=== PATIENT | female | born 1975 | race Caucasian/White ===

== ENCOUNTER → 2017-01-29 | Outpatient (CLI) | payer BC ==
--- NOTE | 2017-01-30 08:59 | MM ---
Reason for exam: screening (asymptomatic). Last mammogram was performed 1 year ago. History: Family history of breast cancer in maternal aunt and breast cancer in maternal cousin at age 37. Took hormonal contraceptives for 12 years beginning at age 15. Physical Findings: A clinical breast exam by your physician is recommended on an annual basis and results should be correlated with mammographic findings. MG Screening Mammo w CAD Bilateral CC and MLO view(s) were taken. Prior study comparison: January 23, 2016, bilateral MG 3d diag mammo w/cad BRITTANI. The breast tissue is heterogeneously dense. This may lower the sensitivity of mammography. No significant changes when compared with prior studies. ASSESSMENT: Benign, BI-RAD 2 RECOMMENDATION: Routine screening mammogram of both breasts in 1 year.
== END | disposition home or self-care (01) ==
LOC: RADMAMWWP 16:07
PROVIDERS: ATTEND Obstetrics & Gynecology
DX: Z12.31 Encounter for screening mammogram for malignant neoplasm of breast (principal)

== ENCOUNTER → 2017-02-18 | Outpatient (CLI) | payer BC ==
[2017-02-18 07:06] LABS: Basophils % (A) 1 %; CH 28.3; CHCM 32.4; Eosinophils # (A) 0.1 k/uL (0-0.7); Eosinophils % (A) 2 %; HCT 39.8 % (34.0-46.0); HDW 2.38; Luc # (Auto) 0.12; Luc % (Auto) 3; Lymphocytes # (A) 2.2 k/uL (1.0-4.8); Lymphocytes % (A) 46 %; MCH 28.6 pg (25.0-35.0); MCHC 32.5 g/dL (31.0-37.0); MCV 87.8 fL (80.0-100.0); Mean Platelet Volume 7.7; Monocytes # (A) 0.3 k/uL (0-1.0); Monocytes % (A) 7 %; Neutrophils % (A) 42 %; RBC 4.54 m/uL (3.80-5.40); RDW 12.6 % (11.5-15.5); WBC 4.7 k/uL (3.8-10.6); WBC (Perox) 4.98
[2017-02-18 07:15] LABS: Appearance,Urine Clear (Clear); Bacteria,Urine Rare /hpf; Bilirubin,Urine Negative (Negative); Glucose,Urine (UA) Negative (Negative); Ketones,Urine Negative (Negative); Leukocyte Esterase,Urine Trace (Negative); Mucus,Urine Rare /hpf; Nitrite,Urine Negative (Negative); Particle Count 2501; Protein,Urine Negative (Negative); Specific Gravity,Urine 1.018 (1.001-1.035); Squamous Epithelial Cell,Urine 1 /hpf (0-4); UA Billing (MACRO vs. MICRO) MICRO; Urobilinogen,Urine <2.0 mg/dL (<2.0); WBC,Urine 2 /hpf (0-5)
[2017-02-18 11:45] LABS: ALT 31 U/L (9-52); AST 16 U/L (14-36); Alkaline Phosphatase 49 U/L (38-126); Anion Gap 10 mmol/L; Blood Urea Nitrogen 15 mg/dL (7-17); Calcium 9.2 mg/dL (8.4-10.2); Carbon Dioxide 26 mmol/L (22-30); Chloride 106 mmol/L (98-107); Cholesterol 202 mg/dL (<200); Glucose 92 mg/dL (74-99); HDL Cholesterol 70 mg/dL (40-60); Non-African American GFR(MDRD) >60 (>60 ml/min/1.73 sqM); Potassium 4.4 mmol/L (3.5-5.1); Sodium 142 mmol/L (137-145); Total Bilirubin 0.6 mg/dL (0.2-1.3); Total Protein 6.7 g/dL (6.3-8.2)
== END | disposition home or self-care (01) ==
LOC: LABWHC1 06:38
PROVIDERS: ATTEND Internal Medicine
DX: L65.9 Nonscarring hair loss, unspecified (principal); N31.8 Other neuromuscular dysfunction of bladder; R53.83 Other fatigue
CPT/HCPCS: 36415; 80053; 80061; 81001; 82306; 84439; 84443; 84481; 85025

== ENCOUNTER → 2018-03-25 | Outpatient (CLI) | payer BC ==
--- NOTE | 2018-03-29 11:39 | MM ---
Reason for exam: screening (asymptomatic). Last mammogram was performed 1 year and 2 months ago. History: Family history of breast cancer in maternal aunt and breast cancer in maternal cousin at age 37. Took hormonal contraceptives for 12 years beginning at age 15. Physical Findings: A clinical breast exam by your physician is recommended on an annual basis and results should be correlated with mammographic findings. MG 3D Screening Mammo W/Cad Bilateral CC and MLO view(s) were taken. Prior study comparison: January 29, 2017, bilateral MG screening mammo w CAD. January 23, 2016, bilateral MG 3d diag mammo w/cad BRITTANI. The breast tissue is heterogeneously dense. This may lower the sensitivity of mammography. No significant changes when compared with prior studies. ASSESSMENT: Benign, BI-RAD 2 RECOMMENDATION: Routine screening mammogram of both breasts in 1 year.
== END | disposition home or self-care (01) ==
LOC: RADMAMWWP 15:21
PROVIDERS: ATTEND Obstetrics & Gynecology
DX: Z12.31 Encounter for screening mammogram for malignant neoplasm of breast (principal)
CPT/HCPCS: 77063; 77067

== ENCOUNTER → 2018-04-14 | Outpatient (CLI) | payer BC ==
[2018-04-14 08:33] LABS: Basophils % (A) 0 %; Eosinophils # (A) 0.1 k/uL (0-0.7); Eosinophils % (A) 3 %; HCT 41.4 % (34.0-46.0); HGB 13.2 gm/dL (11.4-16.0); Lymphocytes # (A) 2.1 k/uL (1.0-4.8); Lymphocytes % (A) 48 %; MCH 27.8 pg (25.0-35.0); MCV 87.1 fL (80.0-100.0); Mean Platelet Volume 8.4; Monocytes # (A) 0.2 k/uL (0-1.0); Monocytes % (A) 6 %; Neutrophils # (A) 1.8 k/uL (1.3-7.7); Neutrophils % (A) 41 %; Platelet Count 174 k/uL (150-450); RBC 4.76 m/uL (3.80-5.40); RDW 12.6 % (11.5-15.5); WBC 4.4 k/uL (3.8-10.6)
[2018-04-14 09:08] LABS: ALT 18 U/L (9-52); AST 19 U/L (14-36); Albumin 4.1 g/dL (3.5-5.0); Alkaline Phosphatase 52 U/L (38-126); Anion Gap 7 mmol/L; Blood Urea Nitrogen 17 mg/dL (7-17); Calcium 9.2 mg/dL (8.4-10.2); Carbon Dioxide 30 mmol/L (22-30); Chloride 104 mmol/L (98-107); Cholesterol 212 mg/dL (<200); Glucose 97 mg/dL (74-99); HDL Cholesterol 72 mg/dL (40-60); LDL Cholesterol,Calculated 130 mg/dL (0-99); Potassium 4.3 mmol/L (3.5-5.1); Sodium 141 mmol/L (137-145); Total Bilirubin 0.5 mg/dL (0.2-1.3); Total Protein 7.1 g/dL (6.3-8.2); Triglycerides 50 mg/dL (<150)
== END | disposition home or self-care (01) ==
LOC: LABWHC1 07:13
PROVIDERS: ATTEND Internal Medicine
DX: Z00.00 Encounter for general adult medical examination without abnormal findings (principal); F90.9 Attention-deficit hyperactivity disorder, unspecified type; E55.9 Vitamin D deficiency, unspecified
CPT/HCPCS: 36415; 80053; 80061; 82306; 85025

== ENCOUNTER → 2018-07-23 | Outpatient (CLI) | payer BC ==
--- NOTE | 2018-07-23 14:10 | CT ---
EXAMINATION TYPE: CT soft tissue neck w con DATE OF EXAM: 07/23/2018 1:49 PM COMPARISON: HISTORY: enlarged lymph nodes on right side CT DLP: 383 mGycm Automated exposure control for dose reduction was used. CONTRAST: CT scan of the neck is performed following with IV Contrast, patient injected with 100 mL of Isovue 3 00. Axial images are obtained, coronal and sagittal reformatted images are reviewed. FINDINGS: Thyroid enhances normally. Osseous structures. Does appear to be a small nodule extending o ff the inferior margin of the right lobe thyroid The carotid arteries appear to be patent bilaterally. Oral pharynx and nasopharynx symmetric. Intraorbital and intracranial cranial structures have a tika l appearance Submandibular and parotid glands have a normal appearance. Hypertrophic and degenerative change of th e spine particularly noted at C5-6 and C6-C7 of the slight kyphosis. Correlate clinically. No pathologic adenopathy identified. Vocal cords have a normal appearance IMPRESSION: 1. No pathologic adenopathy. 2. Severe degenerative disc disease lower cervical spine. 3. There is a enhancing 1 cm density along the right paratracheal space which may represent a nodule extending off the inferior margin of the thyroid tissue or ectopic thyroid tissue. Recommend correlat ion with ultrasound.
== END ==
LOC: RADCTMAIN 13:18
PROVIDERS: ATTEND Internal Medicine
DX: M50.322 Other cervical disc degeneration at C5-C6 level (principal)
CPT/HCPCS: 70491; Q9967

== ENCOUNTER → 2018-07-30 | Outpatient (CLI) | payer BC ==
--- NOTE | 2018-07-30 15:53 | US ---
EXAMINATION TYPE: US thyroid st tissue head/neck DATE OF EXAM: 07/30/2018 COMPARISON: CT 2019 CLINICAL HISTORY: E04.1 Thyroid nodule. Thyroid nodule seen on recent CT GLAND SIZE: Right Lobe: 4.2 x 1.2 x 1.4 cm Overall Parenchyma: homogenous Left Lobe: 4.0 x 1.2 x 1.5 cm Overall Parenchyma: homogeneous Isthmus Thickness: 0.2 cm NODULES RIGHT: # of nodules measured on right: 0 LEFT: # of nodules measured on left: 1 1. 1.0 X 0.6 x 0.8 cm hypoechoic solid nodule at the mid/lower pole with well-defined margins. This nodule is wider than tall and shows peripheral vascularity. Prior size: no previous ISTHMUS: # of nodules measured in the isthmus: 0 Bilateral neck scanned, 1.6 x 0.9 x 1.1cm hypoechoic vascular structure seen right neck inferior to r ight thyroid lobe. This may be a parathyroid. This appears to correspond to the CT findings could be an accessory lobe o f thyroid tissue. IMPRESSION: 1. A 1 cm hypoechoic nodule inferior pole left lobe thyroid. 2. There is a 1.9 x 0.9 x 1.1 cm hypoechoic structure within the right neck inferior to the right lob e thyroid.
== END | disposition home or self-care (01) ==
LOC: RADUSWWP 14:51
PROVIDERS: ATTEND Internal Medicine
DX: E04.1 Nontoxic single thyroid nodule (principal)
CPT/HCPCS: 76536

== ENCOUNTER 2018-09-03 09:17 | Day surgery (SDC) | payer BC ==
[2018-09-03] MEDS ORDERED: ALPRAZolam 0.5 MG TAB PO ONE (09:44)
[2018-09-03 10:20] VITALS: RESP 16; TEMP 98.1
--- NOTE | 2018-09-03 10:58 | US ---
ULTRASOUND GUIDED FNA THYROID BIOPSY: CLINICAL HISTORY: Request for FNA of right-sided extra thyroid nodule and 1 cm left thyroid nodule FINDINGS: The procedure was explained to the patient. The risks, complications, benefits and alternatives were discussed and any questions were answered. Informed consent was obtained. Patient was placed supin e on the ultrasound table and prepped and draped in the usual sterile fashion. Utilizing a 25 gauge needle, five passes were made into the each of the requested nodules. Patient was stable throughout the procedure. Pathology is pending. All elements of maximal barrier technique were utilized. IMPRESSION: 1. Successful ultrasound guided FNA right extrathyroid nodule and left thyroid nodule biopsy.
[2018-09-03 11:36] VITALS: BP 116/70; PULSE 80
== END 2018-09-03 11:10 | disposition home or self-care (01) ==
LOC: RADPROMAIN 09:17
PROVIDERS: ATTEND Otolaryngology
DX: E04.1 Nontoxic single thyroid nodule (principal)
CPT/HCPCS: 10005; 10006; 88173; 88305

== ENCOUNTER → 2019-05-12 | Outpatient (CLI) | payer BC ==
--- NOTE | 2019-05-13 07:15 | US ---
EXAMINATION TYPE: US thyroid st tissue head/neck DATE OF EXAM: 05/12/2019 COMPARISON: US 07/30/2018 and 09/03/2018 CLINICAL HISTORY: E04.1 THYROID NODULE BILATERAL. Prior bilateral thyroid FNA. GLAND SIZE: Right Lobe: 3.7 x 1.3 x 1.8 cm Overall Parenchyma: homogenous Left Lobe: 3.5 x 1.5 x 1.1 cm Overall Parenchyma: homogeneous Isthmus Thickness: 0.1 cm NODULES RIGHT: # of nodules measured on right: 1 extra thyroid nodule note inferiorly 1. 1.5 X1.4 x 1.1 cm isoechoic solid nodule inferior to main thyroid tissue with well-defined margin s. This nodule is wider than tall and shows intranodular vascularity (prior FNA ). Prior size: 1.6 x 1.1 x 0.9 cm LEFT: # of nodules measured on left: 2 1. 0.2 X 0.2 x 0.1 cm hypoechoic cystic nodule at the upper pole with well-defined margins. This n odule is wider than tall and shows no intranodular vascularity. Prior size: none seen 2. 1.0 X 1.0 x 0.5 cm hypoechoic solid nodule at the mid medial pole with well-defined margins. Thi s nodule is wider than tall and shows intranodular vascularity. Prior size: 1.0 x 0.8 x 0.6 cm ISTHMUS: # of nodules measured in the isthmus: 0 Bilateral neck scanned: lymph node is noted superior to left thyroid = 1.8 x 1.5 x 0.5cm. IMPRESSION: Overall similar size of the solitary left thyroid nodule and right thyroid nodule that estrada s been previously biopsied.
--- NOTE | 2019-05-13 13:48 | MM ---
Reason for exam: screening (asymptomatic). Last mammogram was performed 1 year and 2 months ago. History: Family history of breast cancer in maternal aunt and breast cancer in maternal cousin at age 37. Took hormonal contraceptives for 12 years beginning at age 15. Physical Findings: A clinical breast exam by your physician is recommended on an annual basis and results should be correlated with mammographic findings. MG 3D Screening Mammo W/Cad Bilateral CC and MLO view(s) were taken. Prior study comparison: March 25, 2018, bilateral MG 3d screening mammo w/cad. January 29, 2017, bilateral MG screening mammo w CAD. The breast tissue is heterogeneously dense. This may lower the sensitivity of mammography. No significant changes when compared with prior studies. ASSESSMENT: Benign, BI-RAD 2 RECOMMENDATION: Routine screening mammogram of both breasts in 1 year.
== END | disposition home or self-care (01) ==
LOC: RADMAMWWP 15:12
PROVIDERS: ATTEND Obstetrics & Gynecology
DX: Z12.31 Encounter for screening mammogram for malignant neoplasm of breast (principal); E04.1 Nontoxic single thyroid nodule
CPT/HCPCS: 76536; 77063; 77067

== ENCOUNTER → 2019-08-23 | Outpatient (CLI) | payer BC ==
[2019-08-23 08:06] LABS: Basophils # (A) 0.1 k/uL (0-0.2); Basophils % (A) 2 %; Eosinophils # (A) 0.1 k/uL (0-0.7); Eosinophils % (A) 2 %; HCT 40.1 % (34.0-46.0); HGB 13.1 gm/dL (11.4-16.0); Lymphocytes # (A) 1.5 k/uL (1.0-4.8); Lymphocytes % (A) 37 %; MCH 28.2 pg (25.0-35.0); MCHC 32.7 g/dL (31.0-37.0); MCV 86.2 fL (80.0-100.0); Monocytes # (A) 0.2 k/uL (0-1.0); Monocytes % (A) 5 %; Neutrophils # (A) 2.1 k/uL (1.3-7.7); Neutrophils % (A) 51 %; Platelet Count 192 k/uL (150-450); RBC 4.66 m/uL (3.80-5.40); RDW 12.4 % (11.5-15.5); WBC 4.2 k/uL (3.8-10.6)
[2019-08-23 11:51] LABS: % Iron Saturation 39.86 (12.00-45.00); African American GFR (CKD) 102.5 (60.0-200.0); Albumin 4.2 g/dL (3.80-4.90); Albumin/Globulin Ratio 2.21 (1.60-3.17); Anion Gap 8.6 mmol/L (4.00-12.00); Calcium 8.9 mg/dL (8.7-10.3); Carbon Dioxide 24.4 mmol/L (21.6-31.8); Chol/HDL Ratio 3.06; Globulin 1.9 g/dL (1.6-3.3); LDL Cholesterol,Calculated 123.8 mg/dL (0.0-131.0); Non-African American GFR(CKD) 88.4 (60.0-200.0); Potassium 4.2 mmol/L (3.5-5.5); Total Bilirubin 0.5 mg/dL (0.3-1.2); Total Protein 6.1 g/dL (6.2-8.2); VLDL Calculation 14.2 mg/dL (5.00-40.00)
== END | disposition home or self-care (01) ==
LOC: LABWHC1 07:02
PROVIDERS: ATTEND Internal Medicine
DX: R53.83 Other fatigue (principal); E55.9 Vitamin D deficiency, unspecified; Z13.6 Encounter for screening for cardiovascular disorders
CPT/HCPCS: 36415; 80053; 80061; 82306; 82607; 83540; 83550; 84443; 85025

== ENCOUNTER → 2019-09-08 | Outpatient (CLI) | payer BC ==
--- NOTE | 2019-09-09 09:14 | USB ---
Reason for exam: clinical finding. History: Family history of breast cancer in maternal aunt and breast cancer in maternal cousin at age 37. Took hormonal contraceptives for 12 years beginning at age 15. Indicated problem(s): palpable abnormality in the left breast. Physical Findings: Nurse Summary: 1cm nodule in the left axilla (nurse dw). US Breast LT Left complete breast ultrasound includes all four quadrants, the retroareolar region and axilla. Finding demonstrates a 1.2 x 1.2 x 0.3cm mixed lesion at 12 o'clock, questionable duct, a 0.7 x 0.4 x 0.4cm cystic lesion at 3 o'clock and a 1.3 x 1.1 x 0.6cm mixed lesion at 6 o'clock, questionable duct. These results were verbally communicated with the patient and result sheet given to the patient on 09/08/19. ASSESSMENT: Incomplete: need additional imaging evaluation, BI-RAD 0 RECOMMENDATION: Follow-up diagnostic mammogram of the left breast.
--- NOTE | 2019-09-09 09:31 | MM ---
Reason for exam: clinical finding. Last mammogram was performed 4 months ago. History: Family history of breast cancer in maternal aunt and breast cancer in maternal cousin at age 37. Took hormonal contraceptives for 12 years beginning at age 15. MG 3D Diag Mammo W/Cad LT CC and MLO view(s) were taken of the left breast. Prior study comparison: May 12, 2019, bilateral MG 3d screening mammo w/cad. March 25, 2018, bilateral MG 3d screening mammo w/cad. The breast tissue is heterogeneously dense. This may lower the sensitivity of mammography. There is no discrete abnormality including area of concern, identified by ultrasound. No significant new findings when compared with previous films. These results were verbally communicated with the patient and result sheet given to the patient on 09/08/19. ASSESSMENT: Probably benign, BI-RAD 3 RECOMMENDATION: Ultrasound of the left breast in 3 months. Manage patient on a clinical basis.
== END | disposition home or self-care (01) ==
LOC: RADUSWWP 14:56
PROVIDERS: ATTEND Obstetrics & Gynecology
DX: R92.8 Other abnormal and inconclusive findings on diagnostic imaging of breast (principal); N64.4 Mastodynia; N63.20 Unspecified lump in the left breast, unspecified quadrant
CPT/HCPCS: 77061; 77065

== ENCOUNTER → 2019-09-20 | Outpatient (CLI) | payer BC ==
--- NOTE | 2019-09-20 16:15 | US ---
EXAMINATION TYPE: US thyroid st tissue head/neck DATE OF EXAM: 09/20/2019 COMPARISON: US 05/12/2019 and 07/30/2018. Fine-needle aspiration of 09/03/2018 CLINICAL HISTORY: E04.1 Thyroid Nodule. Thyroid nodules, history of thyroid FNA GLAND SIZE: Right Lobe: 4.1 x 1.1 x 1.2 cm Overall Parenchyma: homogenous Left Lobe: 3.4 x 1.2 x 1.2 cm Overall Parenchyma: homogeneous Isthmus Thickness: 0.1 cm NODULES RIGHT: # of nodules measured on right: 0 LEFT: # of nodules measured on left: 1 1. 0.8 X 0.5 x 0.8 cm hypoechoic solid nodule at the medial mid pole with well-defined margins. Thi s nodule is wider than tall and shows intranodular vascularity. Prior size: 1.0 x 1.0 x 0.5 cm ISTHMUS: # of nodules measured in the isthmus: 0 Bilateral neck scanned, right neck separate from and inferior to thyroid lobe: 1.7 x 1.0 x 1.2cm isoe choic solid vascular mass (seen on previous exam). This previously measured 1.5 x 1.1 x 1.4 cm. IMPRESSION: Right extrathyroid nodule that was previously biopsied demonstrates overall similar size. Left thyroid nodule demonstrates no interval growth.
== END | disposition home or self-care (01) ==
LOC: RADUSWWP 15:34
PROVIDERS: ATTEND Otolaryngology
DX: E04.2 Nontoxic multinodular goiter (principal)
CPT/HCPCS: 76536

== ENCOUNTER → 2019-12-08 | Outpatient (CLI) | payer BC ==
--- NOTE | 2019-12-08 09:49 | USB ---
Reason for exam: clinical finding. History: Family history of breast cancer in maternal aunt and breast cancer in maternal cousin at age 37. Took hormonal contraceptives for 12 years beginning at age 15. Indicated problem(s): pain in the left breast. Physical Findings: Nurse did not find any significant physical abnormalities on exam. US Breast LT Technologist: Rupali Mark Left complete breast ultrasound includes all four quadrants, the retroareolar region and axilla. Finding demonstrates a 1.0 x 0.8 x 0.3cm lesion at 12 o'clock prior measured 1.2 x 0.3 x 1.2cm, a 0.6 x 0.5 x 0.4cm cystic lesion at 5 o'clock, septations/cluster, prior measured 0.7 x 0.4 x 0.5cm and a 0.6 x 0.5 x 0.4cm cystic lesion at 6 o'clock, septations/cluster, prior measured 0.6 x 0.6cm. These results were verbally communicated with the patient and result sheet given to the patient on 12/08/19. ASSESSMENT: Probably benign, BI-RAD 3 RECOMMENDATION: Surgical consultation of the left breast. (nipple discharge) Called office with mammographic findings and has scheduled an appointment for the patient for 12/16/[address] Crooks. PRELIMINARY REPORT CALLED AND FAXED TO DR. CROOKS ON 12/08/19. Ultrasound of the left breast in 6 months.
== END | disposition home or self-care (01) ==
LOC: RADUSWWP 07:45
PROVIDERS: ATTEND Obstetrics & Gynecology
DX: R92.8 Other abnormal and inconclusive findings on diagnostic imaging of breast (principal)

== ENCOUNTER → 2019-12-16 | Outpatient (CLI) | payer BC ==
[2019-12-16 14:04] VITALS: BP 130/79; PULSE 79; RESP 18; TEMP 98.2
--- NOTE | 2019-12-16 14:45 | P.GSHP ---
History of Present Illness H&P Date: 12/16/19 Chief Complaint: lump in her left breast Bernie is a 44 year old female who complains of a bilateral shooting breast pain 6 months ago. She states that this is improved and now she has an aching heaviness in her left breast. It is located in the upper outer quadrant region. Nothing seems to make the pain better or worse. It is constant, it is an aching sensation and at times feels like it could burst. She has also had a question at the nipple on the left side. She did have bilateral nipple crusting 6 months ago but that is stopped in the right breast. She's never had any breast biopsies or cysts drain. She does not feel any discrete masses in her breast. She denies any trauma or infection in the breast. Bernie had a screening bilateral mammogram performed on [id number]. This was felt to be benign BIRADS 2 and routine screening of both breast in 1 year was recommended. She became symptomatic she had a left breast diagnostic mammogram performed which is probably benign BIRADS 3 this was on [id number]. On the same day she had an ultrasound of the left breast which revealed multiple cystic lesions. After the mammogram and ultrasound of the left breast it was recommended that she have a follow-up diagnostic mammogram and ultrasound of the left breast in 3 months. This was repeated 0n December 08, 2019. This revealed again multiple cystic changes. It was felt to be probably benign BIRADS 3 surgical consultation for the left nipple discharge was recommended. The patient will also have a repeat left breast mammogram and ultrasound in 6 months. The discharge is spontaneous. She does not see anything on her bronchitis crusted on the nipple. She has not noted any blood in the discharge. Caffeine: negative Smoking: Negative she is not exposed to secondhand smoke Hormones: Negative chocolate: Negative Family History: maternal aunt: breast cancer maternal cousin: breast cancer in 30's Hormonal history: Menarche: 11 G4M1P2, 1 stillborn; first at 33 periods: had an ablation, no periods now hormones: none Surgical history: 1. 2. D&C 3. right knee surgery Medical History: none Social History: smoke: none alcohol: occasional drugs: none - Constitutional Constitutional: Denies chills, Denies fever - EENT Eyes: denies blurred vision, denies pain Ears: deny: decreased hearing, tinnitus Ears, nose, mouth and throat: Denies headache, Denies sore throat - Breasts Breasts: bilateral: as per HPI - Cardiovascular Cardiovascular: Denies chest pain, Denies shortness of breath - Respiratory Respiratory: Denies cough, Denies 7 - Gastrointestinal Gastrointestinal: Denies abdominal pain, Denies diarrhea, Denies nausea, Denies vomiting - Genitourinary (Female) Genitourinary: Denies dysuria, Denies hematuria - Menstruation Menstruation: Reports amenorrhea - Musculoskeletal Musculoskeletal: Reports myalgias - Integumentary Comment: pruritis under the breast Integumentary: Denies pruritus, Denies rash - Neurological Neurological: Reports weakness, Denies numbness - Psychiatric Psychiatric: Denies anxiety, Denies depression - Endocrine Endocrine: Reports fatigue, Reports weight change - Hematologic/Lymphatic Comment: none - Allergic/Immunologic Allergic/Immunologic: Reports seasonal allergies Past Medical History Additional Past Medical History / Comment(s): thyroid nodule History of Any Multi-Drug Resistant Organisms: None Reported Past Surgical History: Section, Orthopedic Surgery Additional Past Surgical History / Comment(s): rt meniscus repair Past Anesthesia/Blood Transfusion Reactions: No Reported Reaction Additional Past Anesthesia/Blood Transfusion Reaction / Comment(s): no hx blood transfusion Past Psychological History: No Psychological Hx Reported Smoking Status: Never smoker Past Alcohol Use History: Occasional Past Drug Use History: None Reported - Past Family History Mother Family Medical History: No Reported History Medications and Allergies Home Medications Medication Instructions Recorded Confirmed Type Dextroamphetamine/Amphetamine 20 mg PO TID 07/31/14 12/16/19 History [Adderall] Ibuprofen [Motrin] 600 mg PO Q6HR PRN #40 tab 08/01/14 12/16/19 Rx Cyclobenzaprine HCl 10 mg PO TID PRN 08/19/18 12/16/19 History Loratadine [Claritin] 10 mg PO DAILY 08/19/18 12/16/19 History Multivitamins, Thera [Multivitamin 1 tab PO DAILY 08/19/18 12/16/19 History (formulary)] Allergies Allergy/AdvReac Type Severity Reaction Status Date / Time No Known Allergies Allergy Verified 12/16/19 13:59 Surgical - Exam Vital Signs Temp Pulse Resp BP Pulse Ox 98.2 F 79 18 130/79 100 12/16/19 14:01 12/16/19 14:01 12/16/19 14:01 12/16/19 14:01 12/16/19 14:01 BMI 23 - General well developed, well nourished, no distress - Eyes normal ocular movement - ENT no hearing loss, no congestion - Neck no masses, trachea midline - Respiratory normal respiratory effort, clear to auscultation - Cardiovascular Rhythm: regular Heart Sounds: normal: S1, S2 - Abdomen Abdomen: soft, non tender, no guarding, no rigid, no rebound - Integumentary normal turgor - Neurologic no disoriented, no combative - Musculoskeletal normal gait - Psychiatric oriented to time, oriented to person, oriented to place, speech is normal, memory intact breast exam: BRA 38B inspection: no nipple inversion, ptosis grade 1 Palpation: Right breast: Multi-positional exam no dominant masses or nodules of concern, dense breast tissue positive for fibrocystic changes Right axilla: No adenopathy of concern Left breast: Multi-positional exam no dominant masses or nodules of concern, fibrocystic changes throughout Left axilla: Small shotty adenopathy non-worrisome Results Mammogram and ultrasound results reviewed Assessment and Plan Assessment: Impression: 1. Mastodynia greatest in the left breast upper outer quadrant region 2. Crusting nipple discharge no discharge elicited. On today's exam 3. Ultrasound revealing multiple cysts in the left breast Plan: 1. Erwin oil 2. Avoid caffeinated products 3. No lesion which would warrant interventional biopsy at this time 4. Repeat bilateral mammogram in 6 months with a left breast ultrasound at that time as well repeat physician exam at that time 5. The patient will use ibuprofen as needed 6. The patient may well be perimenopausal and the changes in hormonal fluctuation may be contributing to the discomfort in the breast 7. follow up in three months to see if symptomatic pain is resolving We have had a discussion regarding the causes of mastodynia which is noncyc lical. The patient understands she is going to try Erwin oil and avoid caffeinated products. Cc: Dr. Draper, DR. Dunn encounter 45 minutes, > 50% of time in planning nad counselling
== END | disposition home or self-care (01) ==
LOC: WWCWWP 13:44
PROVIDERS: ATTEND Surgery
DX: Z53.9 Procedure and treatment not carried out, unspecified reason (principal)

== ENCOUNTER → 2020-04-13 | Outpatient (CLI) | payer BC ==
[2020-04-13 14:34] VITALS: BP 101/63; PULSE 77; RESP 16; TEMP 98.6
--- NOTE | 2020-04-13 15:03 | P.PN ---
Subjective Progress Note Date: 04/13/20 Principal diagnosis: Mastodynia Bernie is a 45 year old female who complained of a bilateral shooting breast pain for the prior 6 months ago when seen on 12-16-19. She stated that this is improved and now she has an aching heaviness in her left breast. It is located in the upper outer quadrant region. Nothing seems to make the pain better or worse. It is constant, it is an aching sensation and at times feels like it could burst. She has also had a question at the nipple on the left side. She did have bilateral nipple crusting 6 months ago but that is stopped in the right breast, and only on the left. She also has bilateral nipple itching. She's never had any breast biopsies or cysts drain. She does not feel any discrete masses in her breast. She denies any trauma or infection in the breast. Bernie had a screening bilateral mammogram performed on [id number]. This was felt to be benign BIRADS 2 and routine screening of both breast in 1 year was recommended. She became symptomatic and she had a left breast diagnostic mammogram performed which is probably benign BIRADS 3 this was on . On the same day she had an ultrasound of the left breast which revealed multiple cystic lesions. After the mammogram and ultrasound of the left breast it was recommended that she have a follow-up diagnostic mammogram and ultrasound of the left breast in 3 months. This was repeated 0n December 08, 2019. This revealed again multiple cystic changes. It was felt to be probably benign BIRADS 3 surgical consultation for the left nipple discharge was recommended. The left nipple discharge is spontaneous and persistent. She has noted bilateral crusting of the nipples and discoloration in her bra. She has not noted any blood in the discharge. It is worse on the left side than the right. At this time she has persistent left lateral aching/nagging breast discomfort. It has improved. His had no further stabbing discomfort. It does not spread any place. She has not had any further radiographic studies sense December 08, 2019. The discomfort is not cyclical. She had an ablation and no longer has menstrual periods. Caffeine: negative, she does drink pop occasionally Smoking: Negative she is not exposed to secondhand smoke Hormones: Negative chocolate: Negative Family History: maternal aunt: breast cancer maternal cousin: breast cancer in 30's Hormonal history: Menarche: 11 , M1 stillborn; first at 33 periods: had an ablation, no periods now hormones: none Surgical history: 1. 2. D&C 3. right knee surgery Medical History: none Social History: smoke: none alcohol: occasional drugs: none - Constitutional Constitutional: Denies chills, Denies fever - EENT Eyes: denies blurred vision, denies pain Ears: deny: decreased hearing, tinnitus Ears, nose, mouth and throat: Denies headache, Denies sore throat - Breasts Breasts: bilateral: as per HPI - Cardiovascular Cardiovascular: Denies chest pain, Denies shortness of breath - Respiratory Respiratory: Denies cough, - Gastrointestinal Gastrointestinal: Denies abdominal pain, Denies diarrhea, Denies nausea, Denies vomiting - Genitourinary (Female) Genitourinary: Denies dysuria, Denies hematuria - Menstruation Menstruation: Reports amenorrhea - Musculoskeletal Musculoskeletal: Reports myalgias - Integumentary Comment: pruritis under the breast, itching of nipples Integumentary: Denies pruritus, Denies rash - Neurological Neurological: Reports weakness, Denies numbness - Psychiatric Psychiatric: Denies anxiety, Denies depression - Endocrine Endocrine: Reports fatigue, Reports weight change - Hematologic/Lymphatic Comment: none - Allergic/Immunologic Allergic/Immunologic: Reports seasonal allergies Objective - Vital Signs Vital signs: Vital Signs Temp 98.6 F 04/13/20 14:27 Pulse 77 04/13/20 14:27 Resp 16 04/13/20 14:27 BP 101/63 04/13/20 14:27 Pulse Ox 97 04/13/20 14:27 Intake & Output 04/12/20 04/13/20 04/13/20 18:59 06:59 18:59 Weight 56.699 kg - Exam BMI 22.9 - Constitutional General appearance: Present: average body habitus - EENT Eyes: Present: EOMI ENT: Present: hearing grossly normal - Neck Neck: Present: normal ROM - Respiratory Respiratory: bilateral: CTA - Cardiovascular Rhythm: regular Heart sounds: normal: S1, S2 - Gastrointestinal General gastrointestinal: Present: normal bowel sounds, soft - Integumentary Integumentary: Present: normal turgor - Musculoskeletal Musculoskeletal: Present: gait normal - Psychiatric Psychiatric: Present: A&O x's 3, appropriate affect, intact judgment & insight - Additional findings Additional findings: Breast exam: BRA 36B inspection: bilateral grade 2 ptosis palpation: right breast: Multi-positional exam no dominant masses or nodules of concern Right axilla: No adenopathy of concern Left breast: Multi-positional exam no dominant masses or nodules of concern, increased density of tissue in the upper outer quadrant area at the location where patient has increased breast discomfort this is not worrisome on palpation Left axilla: No adenopathy of concern No nipple discharge is noted in either breast on today's examination Assessment and Plan Assessment: Impression: 1. Mastodynia greatest in the left breast 2. Mild asymmetry of the breast with the right breast being slightly larger than the left breast 3. Intermittent bilateral nipple crusting/believed to be related to fibrocystic changes no discharge on today's exam Plan: 1. Patient is due for bilateral mammogram at the end of April, and than will have follow up appointment 2. Patient has markedly reduced her caffeine intake she does not smoke and does not eat chocolate we will consider primrose oil 3. We have discussed causes of fibrocystic breast pain and the patient had been given appropriate regarding breast pain on her last visit 4. At this time he did not see anything which would warrant interventional biopsy and we will continue to follow closely Cc: Dr. Kirby, encounter 25 minutes, > 50% of time in planning and counselling
== END | disposition home or self-care (01) ==
LOC: WWCWWP 14:18
PROVIDERS: ATTEND Surgery
DX: Z53.9 Procedure and treatment not carried out, unspecified reason (principal)

== ENCOUNTER → 2021-01-18 | Outpatient (CLI) | payer BC ==
[2021-01-18 15:44] LABS: HCT 42.6 % (37.2-46.3); HGB 12.9 g/dL (12.0-15.0); MCH 27.4 pg (27.0-32.0); MCHC 30.3 g/dL (32.0-37.0); MCV 90.4 fL (80.0-97.0); Mean Platelet Volume 11.6 fL (9.5-12.2); Platelet Count 210 X 10*3/uL (140-440); RBC 4.71 X 10*6/uL (4.10-5.20); RDW 13.4 % (11.5-14.5); WBC 5.32 X 10*3/uL (4.50-10.00)
[2021-01-18 19:02] LABS: African American GFR (CKD) 119.6 (60.0-200.0); Albumin 4.3 g/dL (3.80-4.90); Albumin/Globulin Ratio 1.79 (1.60-3.17); Anion Gap 6.4 mmol/L (4.00-12.00); BUN/Creat Ratio 18.57 Ratio (12.00-20.00); Calcium 9.2 mg/dL (8.7-10.3); Carbon Dioxide 28.6 mmol/L (21.6-31.8); Chol/HDL Ratio 2.46; Globulin 2.4 g/dL (1.6-3.3); LDL Cholesterol,Calculated 115.8 mg/dL (0.0-131.0); Non-African American GFR(CKD) 103.2 (60.0-200.0); Potassium 4.5 mmol/L (3.5-5.5); Total Bilirubin 0.6 mg/dL (0.3-1.2); Total Protein 6.7 g/dL (6.2-8.2); VLDL Calculation 17.2 mg/dL (5.00-40.00)
== END | disposition home or self-care (01) ==
LOC: LABWHC1 10:03
PROVIDERS: ATTEND Family Medicine
DX: Z00.01 Encounter for general adult medical examination with abnormal findings (principal)
CPT/HCPCS: 36415; 80053; 80061; 82306; 85027

== ENCOUNTER → 2022-04-02 | Outpatient (CLI) | payer BC ==
--- NOTE | 2022-04-03 09:01 | MM ---
Reason for Exam: Screening (asymptomatic). Last mammogram was performed 2 year(s) and 11 month(s) ago. Patient History: Menarche at age 10. First Full-Term at age 20. Hormonal Contraceptives for 12 years from age 15 until age 31. Maternal cousin had breast cancer, age 37. Maternal aunt had breast cancer. Last menstrual period: Risk Values: [place] 5 year model risk: 0.8%. NCI Lifetime model risk: 8.2%. Prior Study Comparison: 03/25/2018 Bilateral Screening Mammogram, [facility]. 05/12/2019 Bilateral Screening Mammogram, [facility]. 09/08/2019 Left Diagnostic Mammogram, [facility]. Tissue Density: There are scattered fibroglandular densities. Findings: Analyzed By CAD. There is no suspicious group of microcalcifications or new suspicious mass in either breast. Overall Assessment: Negative, BI-RAD 1 Management: Screening Mammogram of both breasts in 1 year. A clinical breast exam by your physician is recommended on an annual basis and results should be correlated with mammographic findings. [facility] will attempt to contact patient to return for supplemental views and ultrasound if indicated. Electronically signed and approved by: Alonso Lopez DO
== END | disposition home or self-care (01) ==
LOC: RADMAMWWP 15:02
PROVIDERS: ATTEND Obstetrics & Gynecology
DX: Z12.31 Encounter for screening mammogram for malignant neoplasm of breast (principal); Z80.3 Family history of malignant neoplasm of breast
CPT/HCPCS: 77063; 77067

== ENCOUNTER → 2022-05-16 | Outpatient (CLI) | payer BC ==
--- NOTE | 2022-05-16 15:16 | US ---
EXAMINATION TYPE: US thyroid st tissue head/neck DATE OF EXAM: 05/16/2022 COMPARISON: 09/20/2019 CLINICAL HISTORY: E04.1 SINGLE THYROID NODULE. Thyroid nodules. GLAND SIZE: Right Lobe: 4.1 x 1.1 x 1.3 cm Overall Parenchyma: homogenous Left Lobe: 3.4 x 1.1 x 1.1 cm cm Overall Parenchyma: homogeneous Isthmus Thickness: 0.2 cm NODULES RIGHT: # of nodules measured on right: 1 inf to thyroid gland. 1. 1.7 X 1.1 x 1.3 cm, lower medial, solid or almost completely solid, hypoechoic nodule, which is wider than tall, with smooth margins, without echogenic foci. Prior size: 1.7 x 1.0 x 1.2 cm LEFT: # of nodules measured on left: 1 1. 1.0 X .6 x 1.0 cm, mid mid, solid or almost completely solid, hypoechoic nodule, which is wider than tall, with smooth margins, without echogenic foci. Prior size: .8 x .5 x .8 cm \ ISTHMUS: # of nodules measured in the isthmus: .2 Bilateral neck scanned, no evidence of lymphadenopathy. IMPRESSION: Stable nonspecific thyroid nodularity.
== END | disposition home or self-care (01) ==
LOC: RADUSWWP 14:44
PROVIDERS: ATTEND Family Medicine
DX: E04.2 Nontoxic multinodular goiter (principal)
CPT/HCPCS: 76536

== ENCOUNTER → 2022-07-03 | Outpatient (CLI) | payer BC ==
--- NOTE | 2022-07-03 15:46 | US ---
EXAMINATION TYPE: US extremity nonvasc mass RT DATE OF EXAM: 07/03/2022 COMPARISON: NONE CLINICAL HISTORY: R22.40 SWELLING, MASS, LUMP. Hyperechoic well circumscribed mass medial mid thigh measuring 5.3 x 1.1 x 3.9cm IMPRESSION: Soft tissue mass may reflect a lipoma. Correlate clinically and consider follow-up if fe lt to be indicated.
== END | disposition home or self-care (01) ==
LOC: RADUSWWP 14:51
PROVIDERS: ATTEND Family Medicine
DX: R22.41 Localized swelling, mass and lump, right lower limb (principal)

== ENCOUNTER 2022-10-21 08:41 | Day surgery (SDC) | payer BC ==
[2022-10-16 09:54] VITALS: BMI 23.4
[2022-10-21 09:15] VITALS: RESP 16; TEMP 97.1
[2022-10-21] MEDS ORDERED: LIDOCAINE 1% (10MG/ML) FOR IV START INTRADERMA ONE (09:19)
[2022-10-21] MEDS ORDERED: LACTATED RINGERS 1,000 ML IV ONE (09:19)
[2022-10-21] MEDS ORDERED: LIDOCAINE 2% INJ 20 MG/ML (2 ML VIAL) ONE (09:52)
[2022-10-21] MEDS ORDERED: PROPOFOL 10 MG/ML 20 ML VIAL IV ONE (09:52)
[2022-10-21] MEDS ORDERED: GLYCOPYRROLATE 0.2 MG/ML 2 ML VIAL ONE (09:52)
--- NOTE | 2022-10-21 09:54 | P.GSHP ---
History of Present Illness H&P Date: 10/21/22 Chief Complaint: Colon cancer screening 47-year-old female here today for colonoscopy. No bowel complaints. She has not had a colonoscopy. Family history of colon cancer and a grandmother Past Medical History Additional Past Medical History / Comment(s): thyroid nodule History of Any Multi-Drug Resistant Organisms: None Reported Past Surgical History: Section, Orthopedic Surgery, Uterine Ablation Additional Past Surgical History / Comment(s): rt meniscus repair Past Anesthesia/Blood Transfusion Reactions: No Reported Reaction Additional Past Anesthesia/Blood Transfusion Reaction / Comment(s): no hx blood transfusion Smoking Status: Former smoker - Past Family History Mother Family Medical History: No Reported History Medications and Allergies Home Medications Medication Instructions Recorded Confirmed Type Dextroamphetamine/Amphetamine 20 mg PO BID 07/31/14 10/21/22 History [Adderall] Ibuprofen [Motrin] 600 mg PO Q6HR PRN #40 tab 08/01/14 10/21/22 Rx Cyclobenzaprine HCl 10 mg PO TID PRN 08/19/18 10/21/22 History Cholecalciferol [Vitamin D3 (125 1,250 mcg PO WEEKLY 10/21/22 10/21/22 History Mcg = 5000 Iu)] Allergies Allergy/AdvReac Type Severity Reaction Status Date / Time No Known Allergies Allergy Verified 10/21/22 09:15 Surgical - Exam Vital Signs Temp Pulse Resp BP 97.1 F L 56 L 16 143/61 10/21/22 09:14 10/21/22 09:14 10/21/22 09:14 10/21/22 09:14 Physical exam: General: Well-developed, well-nourished HEENT: Normocephalic, sclerae nonicteric Abdomen: Nontender, nondistended Extremities: No edema Neuro: Alert and oriented Assessment and Plan (1) Colon cancer screening Narrative/Plan: Will proceed with colonoscopy at this time. Current Visit: Yes Status: Acute Code(s): Z12.11 - ENCOUNTER FOR SCREENING FOR MALIGNANT NEOPLASM OF COLON SNOMED Code(s): 863756465
--- NOTE | 2022-10-21 10:12 | P.PCN ---
Date of Procedure: 10/21/22 Procedure(s) Performed: PREOPERATIVE DIAGNOSIS: Colon cancer screening POSTOPERATIVE DIAGNOSIS: Normal exam PROCEDURE: Colonoscopy ANESTHESIA: MAC SURGEON: Ady Magallon M.D. SPECIMENS: None ENDOSCOPIC PROCEDURE: The patient was placed on the endoscopy table in the left decubitus position. The Olympus colonoscope was inserted into the anus and passed under direct visualization to the base of the cecum. The appendiceal orifice was visualized. From that point the scope was slowly withdrawn inspecti ng all surfaces carefully. There were no neoplastic inflammatory or polypoid lesions throughout the cecum, ascending, transverse, descending, sigmoid and rectum. There was no visible diverticulosis noted. Digital rectal examination was normal. The patient was taken to the recovery room in stable condition per anesthesia guidelines. RECOMMENDATIONS: Resume diet. Repeat colonoscopy in 10 years.
[2022-10-21 10:24] VITALS: BP 119/81; PULSE 56
== END 2022-10-21 10:45 | disposition home or self-care (01) ==
LOC: ORWHC2ENDO 08:41
PROVIDERS: ATTEND Surgery
DX: Z12.11 Encounter for screening for malignant neoplasm of colon (principal); Z80.0 Family history of malignant neoplasm of digestive organs; E04.1 Nontoxic single thyroid nodule; Z98.890 Other specified postprocedural states; Z87.891 Personal history of nicotine dependence; Z79.1 Long term (current) use of non-steroidal anti-inflammatories (NSAID); Z79.899 Other long term (current) drug therapy
CPT/HCPCS: 45378; 81025; J2704; J2001

== ENCOUNTER → 2024-01-26 | Outpatient (CLI) | payer BC ==
--- NOTE | 2024-01-26 22:14 | US ---
EXAMINATION TYPE: US thyroid st tissue head/neck DATE OF EXAM: 01/26/2024 COMPARISON: NONE CLINICAL INDICATION: Female, 48 years old with history of E04.1 NONTOXIC SINGLE THYROID NODULE; follo w up exam GLAND SIZE: Right Lobe: 3.2 x 1.2 x 1.8 cm Overall Parenchyma: homogeneous Left Lobe: 3.4 x 1.2 x 1.4 cm Overall Parenchyma: heterogeneous Isthmus Thickness: 0.2 cm NODULES RIGHT: # of nodules measured on right: 1 - possible lymph node versus oyther etiology 1. 1.5 X 1.4 x 0.9 cm, inferior to gland, solid or almost completely solid, hypoechoic nodule, which is wider than tall, with smooth margins, without echogenic foci. This may be a parathyroid. Prior size: 1.7 x 1.3 x 1.1 cm LEFT: # of nodules measured on left: 1 1. 0.8 X 0.9 x 0.6 cm, mid , solid or almost completely solid, hypoechoic nodule, which is wider th an tall, with smooth margins, without echogenic foci. Prior size: 1.0 x 0.6 x 1.0 cm ISTHMUS: # of nodules measured in the isthmus: 0 Bilateral neck scanned, no evidence of lymphadenopathy. IMPRESSION: No suspicious thyroid nodules. 2017 ACR TI-RADS LEVEL: TR-RADS 2 - Not Suspicious: No FNA *Highest TI-RADS level nodule reported
== END | disposition home or self-care (01) ==
LOC: RADUSWWP 06:52
PROVIDERS: ATTEND Family Medicine
DX: E04.1 Nontoxic single thyroid nodule (principal)
CPT/HCPCS: 76536

== ENCOUNTER → 2024-02-05 | Outpatient (CLI) | payer BC ==
--- NOTE | 2024-02-05 16:39 | CT ---
EXAMINATION TYPE: CT soft tissue neck w con DATE OF EXAM: 02/05/2024 4:29 PM COMPARISON: 07/23/2018 HISTORY: LOCALIZED ENLARGED LYMPH NODES CT DLP: 324 mGycm Automated exposure control for dose reduction was used. CONTRAST: CT scan of the neck is performed following with IV Contrast, patient injected with 100ml mL of Isovue 300. Axial images are obtained, coronal and sagittal reformatted images are reviewed. FINDINGS: Findings: There is an 11 mm nodule extending off the inferior pole of the right lobe of the thyroid gland. This was seen on the prior study and appears relatively stable. Thyroid ultrasound is recommended for fur ther evaluation. The larynx including the thyroid, arytenoid, cricoid cartilages as well as the vocal cords are normal and symmetric without laryngeal mass. The tongue base, epiglottis, aryepiglottic folds, piriform sinuses and vallecula are normal and symme tric. There is no oral or nasal pharyngeal or parapharyngeal or pharyngeal soft tissue mass or enhancement. The submandibular glands and parotid glands are normal and symmetric. The great vessels of the neck are normal. There is no adenopathy or abscess within the neck. Visualized osseous structures are intact. IMPRESSION: 1. No evidence of lymphadenopathy within the neck. 2. 11 mm nodule of the lower pole of the right thyroid gland. Correlate with thyroid ultrasound.
== END | disposition home or self-care (01) ==
LOC: RADCTMAIN 15:19
PROVIDERS: ATTEND Family Medicine
DX: E04.1 Nontoxic single thyroid nodule (principal); R59.0 Localized enlarged lymph nodes
CPT/HCPCS: 70491; Q9967

== ENCOUNTER 2024-03-21 06:15 | Day surgery (SDC) | payer BC ==
[~2024-03-21 06:15] MED LIST: Pre Op ABX Message 1 EACH MISC MISCELLANE ONE
[2024-03-21] MEDS ORDERED: SCOPOLAMINE 1 MG/72 HR PATCH TRANSDERM ONE (06:36)
[2024-03-21 06:50] VITALS: TEMP 97.5
[2024-03-21] MEDS: IV FLUID CONTINUATION 1,000 ML IV ONE ×2 (06:56→08:23)
[2024-03-21] MEDS ORDERED: MIDAZOLAM 2 MG/2 ML VIAL IV PRN (07:00)
[2024-03-21] MEDS ORDERED: HYDROmorphone 0.5 MG/0.5 ML SYRINGE IVP PRN (07:00)
[2024-03-21] MEDS: LACTATED RINGERS 1,000 ML IV SCH (07:00)
[2024-03-21] MEDS: ACETAMINOPHEN TAB 500 MG TAB PO PRN (07:01)
[2024-03-21] MEDS: DEXAMETHASONE SOD PHOSPHATE 4 MG/ML 1 ML VIAL IV ONE (07:02)
[2024-03-21] MEDS: ONDANSETRON 4 MG/2 ML VIAL IVP ONE (07:02)
[2024-03-21] MEDS: HEPARIN SODIUM,PORCINE 5,000 UNIT/ML 1 ML VIAL SQ PRN (07:05)
[2024-03-21] MEDS ORDERED: PROPOFOL 10 MG/ML 20 ML VIAL IV ONE (07:25)
[2024-03-21] MEDS ORDERED: ceFAZolin 1 GM/50 ML BAG (PMX) ONE (07:25)
[2024-03-21] MEDS ORDERED: PHENYLEPHRINE-0.9% NACL SYG 1,000 MCG/10 ML SYRINGE ONE (07:25)
[2024-03-21] MEDS ORDERED: LIDOCAINE 1% INJ 10MG/ML (20 ML MDV) ONE (07:25)
[2024-03-21] MEDS ORDERED: fentaNYL (PF) 50 MCG/ML 2 ML AMP ONE (07:25)
--- NOTE | 2024-03-21 07:32 | P.GSHP ---
History of Present Illness H&P Date: 03/21/24 Chief Complaint: Right leg mass 49-year-old female last seen in the office in November. Patient has complaints of a mass right thigh. This has been there for the last couple of years but seems to have increased a bit in size over the last year or so. She had an ultrasound in June 2022 showing a 5 x 4 cm mass consistent with probable lipoma. Patient has mild soreness there. No numbness. Past Medical History Additional Past Medical History / Comment(s): thyroid nodule History of Any Multi-Drug Resistant Organisms: None Reported Past Surgical History: Section, Orthopedic Surgery Additional Past Surgical History / Comment(s): rt meniscus repair Past Anesthesia/Blood Transfusion Reactions: No Reported Reaction Additional Past Anesthesia/Blood Transfusion Reaction / Comment(s): no hx blood transfusion Smoking Status: Former smoker - Past Family History Mother Family Medical History: No Reported History Medications and Allergies Home Medications Medication Instructions Recorded Confirmed Type Dextroamphetamine/Amphetamine 20 mg PO BID 07/31/14 03/21/24 History [Adderall] Ibuprofen [Motrin] 600 mg PO Q6HR PRN #40 tab 08/01/14 03/21/24 Rx Cyclobenzaprine HCl 10 mg PO TID PRN 08/19/18 03/21/24 History Cholecalciferol [Vitamin D3 (125 1,250 mcg PO WEEKLY 10/21/22 03/21/24 History Mcg = 5000 Iu)] Allergies Allergy/AdvReac Type Severity Reaction Status Date / Time No Known Allergies Allergy Verified 03/21/24 06:41 Surgical - Exam Vital Signs Temp Pulse Resp BP Pulse Ox 97.5 F L 66 15 124/64 97 03/21/24 06:49 03/21/24 06:49 03/21/24 06:49 03/21/24 06:49 03/21/24 06:49 Physical exam: General: Well-developed, well-nourished HEENT: Normocephalic, sclerae nonicteric Abdomen: Nontender, nondistended Extremities: No edema, right thigh anterior medial distal with 5 x 4 cm subcutaneous mass Neuro: Alert and oriented Assessment and Plan (1) Mass of leg Narrative/Plan: 49-year-old female with right upper leg mass. Will proceed with surgical excision at this time. Risks of bleeding, infection, scarring, seroma, numbness, nerve injury, possible need for additional surgery discussed. She understands and wishes to proceed. Current Visit: Yes Status: Acute Code(s): R22.40 - LOCALIZED SWELLING, MASS AND LUMP, UNSPECIFIED LOWER LIMB SNOMED Code(s): 594669511
[2024-03-21] MEDS: SODIUM CHLORIDE 0.9% 100 ML with ceFAZolin 2,000 MG IV ONE (07:40)
[2024-03-21] MEDS: BUPIVACAINE (PF) 0.25% 30 ML VIAL SQ ONE (07:48)
[2024-03-21] MEDS ORDERED: NALOXONE 0.4 MG/ML 1 ML VIAL IV PRN (08:27)
[2024-03-21] MEDS ORDERED: ACETAMINOPHEN TAB 325 MG TAB PO PRN (08:27)
--- NOTE | 2024-03-21 08:33 | P.OP ---
Date of Procedure: 03/21/24 Procedure(s) Performed: PREOPERATIVE DIAGNOSIS: Right thigh mass POSTOPERATIVE DIAGNOSIS: Right thigh lipomatous mass subfascial PROCEDURE: Excision subfascial right thigh lipomatous mass, intermediate closure SURGEON: Sherita EBL: 5 cc ANESTHESIA: General COMPLICATIONS: None OPERATIVE PROCEDURE: Patient placed under general anesthesia. Right leg abducted and externally rotated so we could visualize the anterior medial aspect of the distal thigh. Palpable mass noted. Skin infiltrated with quarter perce nt Marcaine. Vertical incision made overlying the palpable mass. Dissection through the subcutaneous fatty tissues showed no atypical lipomatous mass. A single vessel was ligated using 3-0 silk ties. The fascia was then visualized. Beneath the fascia I could utilize fatty tissue. The fascia was opened. A lipomatous mass was encountered in the superficial aspect of the musculature. This appeared somewhat infiltrative as there were some muscle fibers seen within the mass itself. The mass was excised using both blunt dissection and cautery. This measured 3.5 x 3 cm. This was sent to pathology. Area was irrigated. No bleeding was seen. Subcutaneous layer was closed using 3-0 Vicryl sutures. Skin closed using a running 4-0 Monocryl subcuticular stitch. Length of intermediate closure 4.5 cm. Skin glue and sterile dressings applied. DISPOSITION: Stable to recovery room
[2024-03-21 09:00] VITALS: RESP 16
[2024-03-21 09:14] VITALS: BP 160/90; PULSE 59
== END 2024-03-21 09:47 | disposition home or self-care (01) ==
LOC: OR 06:15
PROVIDERS: ATTEND Surgery
DX: D17.23 Benign lipomatous neoplasm of skin and subcutaneous tissue of right leg (principal); E04.1 Nontoxic single thyroid nodule; Z87.891 Personal history of nicotine dependence; Z79.899 Other long term (current) drug therapy
CPT/HCPCS: 81025; 88305

== ENCOUNTER → 2024-05-05 | Outpatient (CLI) | payer BC ==
--- NOTE | 2024-05-09 14:20 | MM ---
Reason for Exam: Screening (asymptomatic). Last screening mammogram was performed 12 month(s) ago. Patient History: Menarche at age 10. First Full-Term at age 20. Postmenopausal. Hormonal Contraceptives for 12 years from age 15 until age 31. Maternal cousin had breast cancer, age 37. Maternal aunt had breast cancer. Risk Values: [place] 5 year model risk: 0.9%. NCI Lifetime model risk: 7.9%. Prior Study Comparison: 09/08/2019 Left Diagnostic Mammogram, [facility]. 04/02/2022 Bilateral MG 3D screening mammo w/cad, [facility]. 04/23/2023 Bilateral MG 3D screening mammo w/cad, [facility]. Tissue Density: There are scattered areas of fibroglandular density. Findings: Analyzed By CAD. Right breast: There is no suspicious group of microcalcifications or new suspicious mass. Left breast: There is no suspicious group of microcalcifications or new suspicious mass. Overall Assessment: Negative, BI-RAD 1 Management: Screening Mammogram of both breasts in [address] [facility] will attempt to contact patient to return for supplemental views and ultrasound if indicated. Patient should continue monthly self-breast exams. A clinical breast exam by your physician is recommended on an annual basis. This exam should not preclude additional follow-up of suspicious palpable abnormalities. Note on Carolina scores and lifetime risk: 1. A Carolina score greater than 3% is considered moderate risk. If this is the case, consider specialist referral to assess eligibility for a risk reducing agent. 2. If overall lifetime risk for the development of breast cancer is 20% or higher, the patient may qualify for future screening with alternating mammogram and breast MRI. [facility], , 05/09/2024 2:17 PM. Electronically signed and approved by: Alonso Lopez DO
== END | disposition home or self-care (01) ==
LOC: RADMAMWWP 14:23
PROVIDERS: ATTEND Family Medicine
CPT/HCPCS: 77063; 77067